=== PATIENT | female | born 1955 | race Caucasian/White ===

== ENCOUNTER 2016-08-29 08:49 | Day surgery (SDC) | payer OTHER ==
[~2016-08-29] VITALS: Ht 167.6 cm; Wt 80.7 kg
[2016-08-29] MEDS ORDERED: ASPIRIN PO (10:07)
[2016-08-29] MEDS ORDERED: OMEPRAZOLE (10:07)
[2016-08-29] MEDS ORDERED: OMEGA 3 (10:07)
[2016-08-29] MEDS ORDERED: LISINOPRIL (10:07)
[2016-08-29 10:09] VITALS: Ht 167.6 cm; Wt 80.7 kg
[2016-08-29 10:44] VITALS: BP 167/72; PULSE 58; RESP 22
[2016-08-29 11:32] VITALS: BP 115/68; PULSE 62; RESP 22
[2016-08-29] MEDS ORDERED: FENTAnyl 50 MCG/ML VIAL ONE (11:35)
[2016-08-29] MEDS ORDERED: MIDAZOLAM 1 MG/ML 2 ML INJ ONE ×2 (11:36)
[2016-08-29 11:55] VITALS: BP 116/69; PULSE 63; RESP 22
--- NOTE | 2016-08-30 05:14 | GILP ---
DATE OF PROCEDURE: 08/29/2016 NAME OF PROCEDURE: Colonoscopy. SURGEON: Colin Maloney MD PREOPERATIVE DIAGNOSES: 1. Positive occult blood in stool. 2. Screening colonoscopy. POSTOPERATIVE DIAGNOSES 1. Colonoscopy all the way to the cecum. 2. Angiodysplastic lesions in the right colon. 3. Diverticulosis of the sigmoid colon. 4. Internal and external hemorrhoids. 5. Prominent skin tag. INDICATION FOR THE PROCEDURE: Ms. Arelis Muro is a 61-year-old female patient, who was noted to have positive occult blood in stool. She needed screening colonoscopy. The procedure and possible complications are well explained to the patient. She understood and cons ented to the procedure. DESCRIPTION OF PROCEDURE: Under the influence of fentanyl and Versed, the colonoscope was carefully introduced in the rectum, and under direct vision, it was advanced all the way to the cecum. FINDINGS: The patient had angiodysplastic lesions in the right colon. She had internal and externa l hemorrhoids. She also had a prominent skin tag in the anus, extending into the rectum. She was n oted to have diverticulosis of the sigmoid colon. She tolerated the procedure very well and there was no complication from the procedure. At the end of the procedures, she was awake with stable vital signs, and she was discharged home to the care of her family. IMPRESSION: 1. Colonoscopy all the way to the cecum. 2. Angiodysplastic lesions in the right colon. 3. Diverticulosis of the colon. 4. Internal and external hemorrhoids with prominent skin tag extending from the anus into the rectu m. 5. No colon neoplasm was identified. PLAN: Next screening colonoscopy in 10 years. Dictated By: COLIN COBOS/JUAN Conf#: [id number] DID#: [id number] CC: COLIN MALONEY MD;*EndCC*
== END 2016-08-29 12:13 | disposition home or self-care (01) ==
LOC: GIL 08:49
PROVIDERS: ATTEND Internal Medicine Gastroenterology
DX: Z12.11 Encounter for screening for malignant neoplasm of colon (principal); K57.90 Diverticulosis of intestine, part unspecified, without perforation or abscess without bleeding; K64.4 Residual hemorrhoidal skin tags; K64.8 Other hemorrhoids
CPT/HCPCS: 45378; J2250; J3010